=== PATIENT | female | born 1995 | race Caucasian/White ===

== ENCOUNTER 2021-04-12 14:03 | Emergency (ER) | payer OTHER ==
[~2021-04-12] VITALS: Ht 167.6 cm; Wt 131.5 kg
[2021-04-12 16:11] LABS: URINE BILIRUBIN NEGATIVE (Negative); URINE BLOOD NEGATIVE (Negative); URINE CLARITY CLEAR; URINE COLOR YELLOW; URINE GLUCOSE-RANDOM NEGATIVE (Negative); URINE KETONES NEGATIVE (Negative); URINE LEUKOCYTES-REFLEX NEGATIVE (Negative); URINE NITRITE-REFLEX NEGATIVE (Negative); URINE PROTEIN NEGATIVE (Negative); URINE SPECIFIC GRAVITY 1.025 (1.005-1.030)
[2021-04-12] MEDS ORDERED: ZOFRAN ODT4 MG PO (16:52)
[2021-04-12 17:02] VITALS: BP 152/89
== END 2021-04-12 17:03 | disposition home or self-care (01) ==
LOC: M.ERS 14:03
PROVIDERS: Nurse Practitioner Family
DX: B34.9 Viral infection, unspecified (principal); Z20.822 Contact with and (suspected) exposure to COVID-19